=== PATIENT | male | born 1970 | race Caucasian/White ===

== ENCOUNTER 2018-05-03 07:58 | Outpatient (CLI) | payer OTHER, SELFPAY ==
[2018-05-03 11:03] LABS: ALT 57 U/L (12-78); AST 24 U/L (15-37); Albumin 3.9 g/dL (3.4-5.0); Alkaline Phosphatase 79 U/L (46-116); Anion Gap 7.7 mmol/L (3-11); BUN 19 mg/dL (7-18); Bilirubin, Total 0.5 mg/dL (0.2-1.0); CO2 29.3 mmol/L (21.0-32.0); CREATININE 1.08 mg/dL (0.70-1.30); Calcium 8.9 mg/dL (8.5-10.1); Chloride 104 mmol/L (98-107); Cholesterol 220 mg/dL (50-200); Glucose 104 mg/dL (70-100); HDL Cholesterol 34 mg/dL (40-60); LDL CHOLESTEROL 148 mg/dL (<100); Potassium 4.2 mmol/L (3.5-5.1); Sodium 141 mmol/L (136-145); Total Protein 7.2 g/dL (6.4-8.2); Triglyceride 194 mg/dL (30-150)
== END 2018-05-03 08:18 ==
PROVIDERS: PCP Nurse Practitioner Family; Visit Provider Nurse Practitioner Family
DX: Z13.220 Encounter for screening for lipoid disorders (principal); Z13.228 Encounter for screening for other metabolic disorders
CPT/HCPCS: 36415; 80053; 80061; 83721

== ENCOUNTER 2018-11-07 01:23 | Outpatient (CLI) | payer OTHER, SELFPAY ==
[2018-11-07 09:38] LABS: Calculated LDL 140 mg/dL; Cholesterol 201 mg/dL (50-200); HDL Cholesterol 35 mg/dL (40-60); Triglyceride 130 mg/dL (30-150)
== END 2018-11-07 01:43 ==
PROVIDERS: PCP Nurse Practitioner Family; Visit Provider Nurse Practitioner Family
DX: E78.5 Hyperlipidemia, unspecified (principal)
CPT/HCPCS: 36415; 80061; 83721

== ENCOUNTER 2020-05-27 09:15 | Outpatient (REF) | payer OTHER, SELFPAY ==
[2020-05-27 16:23] LABS: Anion Gap 9.6 mmol/L (3-11); BUN 17 mg/dL (7-18); CO2 26.4 mmol/L (21.0-32.0); Calcium 9.1 mg/dL (8.5-10.1); Calculated LDL 140 mg/dL (<100); Chloride 104 mmol/L (98-107); Cholesterol 203 mg/dL (<200); Glucose 98 mg/dL (74-106); HDL Cholesterol 33 mg/dL (40-60); Sodium 140 mmol/L (136-145); Triglyceride 152 mg/dL (<150)
== END 2020-05-27 09:16 | disposition home or self-care (01) ==
LOC: NCHCN 09:15
PROVIDERS: PCP Nurse Practitioner Family; Visit Provider Nurse Practitioner Family
DX: E78.5 Hyperlipidemia, unspecified (principal); Z00.00 Encounter for general adult medical examination without abnormal findings
CPT/HCPCS: 80048; 80061

== ENCOUNTER 2022-11-11 12:32 | Outpatient (REF) | payer OTHER, SELFPAY ==
[2022-11-11 16:27] LABS: BUN 13 mg/dL (7-18); Calcium 9.6 mg/dL (8.5-10.1); Calculated LDL 159 mg/dL (<100); Chloride 100 mmol/L (98-107); Cholesterol 230 mg/dL (<200); Estimated GFR 91.69 (mL/min/1.73m2); Glucose 102 mg/dL (74-106); HDL Cholesterol 50 mg/dL (40-60); Potassium 4.2 mmol/L (3.5-5.1); Sodium 137 mmol/L (136-145); Triglyceride 105 mg/dL (<150)
[2022-11-14 09:18] LABS: PSA, Screening 0.4 ng/mL (<=3.5)
== END 2022-11-11 12:33 | disposition home or self-care (01) ==
LOC: NCHCN 12:32
PROVIDERS: PCP Nurse Practitioner Family; Visit Provider Physician Assistant
DX: E78.5 Hyperlipidemia, unspecified (principal); Z12.5 Encounter for screening for malignant neoplasm of prostate
CPT/HCPCS: 80048; 80061; 84153

== ENCOUNTER 2023-05-25 08:26 | Day surgery (SDC) | payer OTHER, SELFPAY ==
--- NOTE | 2023-05-24 22:14 | PDOC.DSDIS_ITS ---
Date of service: 05/25/23 Time of Service: 11:01 Discharge Plan Disposition Patient Disposition: Home Condition: Good Discharge Details Reason For Visit: Screening colonoscopy Attending Provider: Stefano Minor Primary Care Provider: Khang Mcdonald Home Meds and New Rx's Prescriptions: Continued levalbuterol tartrate [Xopenex HFA] 45 mcg/actuation HFA aerosol inhaler 1 puff inhalation Q6H PRN tadalafil 10 mg tablet 10 mg PO DAILY PRN Rx Instructions: administer approximately 30min before sexual activity; do not use more than 1 dose per 24hrs Discharge Instructions Additional Instructions: Piero, we were able to complete your colonoscopy today without any difficulty. Your prep was excellent and I could see everything just fine. There was no signs of any polyps, tumors, or any other worrisome pathology. With a negative screening colonoscopy, I recommend a 10-year interval for your next follow-up. 1. If tolerated, consume a soft, low fiber diet for 1-2 days. 2. Do not drive, drink alcohol, operate machinery, make critical decisions, or d o activities that require coordination or balance for 24 hours. 3. Because air was put into your colon during the procedure, expelling air from your rectum (passing gas or farting) is normal. 4. You may not have a bowel movement for 1-3 days because of the colonoscopy prep. This is normal. 5. Go directly to the emergency room if you notice any of the following: Develop chills (warm to touch), or if you have a thermometer and your temperature is above 101 Difficulty breathing or difficultly swallowing Persistent vomiting Severe abdominal pain, other than gas cramps Severe chest pain Black, tarry stools Any bleeding ? exceeding one tablespoon 6. Call your physician if the site where your intravenous was started becomes red, swollen, painful, and warm to touch. 7. Your physician has reviewed your pre-procedure medications. Please continue to take those medications as previously ordered. You will be given specific information/education regarding any changes to your medications before leaving. Activity:: Activity as Tolerated Diet:: As Tolerated Discharge Orders Discharge Orders: Discharge Order (Routine); Ordered 05/24/23 Ordered By: Stefano Minor DS: Diagnosis Discharge Diagnosis (1) Encounter for screening colonoscopy: Status: Acute Asessment and Plan: Negative screening colonoscopy, follow-up 10 years
--- NOTE | 2023-05-24 22:15 | W.COLOREPORT ---
Date of service: 05/25/23 Time of Service: 11:02 Colonoscopy Report Date of procedure: 05/25/23 Pre-op diagnosis general: Screening colonoscopy Post-op diagnosis procedure note: other (Negative screening colonoscopy) Procedure: Colonoscopy Surgeon: Stefano Minor Anesthesia Type: General:No Airway Estimated blood loss (mL): 0 Pathology: none sent Complications: None Disposition: same day Indications: Piero is a 52-year-old man who needs his first screening colonoscopy Prep: Miralax/Dulcolax Procedure Start Time: 10:42 Procedure End Time: 10:55 Retraction Time: 7 Findings: Negative screening colonoscopy Procedure Description: After the induction of monitored anesthetic care, and with the patient in left lateral decubitus position, I began by performing an external anorectal exam.? Perineum and skin were normal, as was the anal verge.? There was evidence of external hemorrhoids.? Next, I performed a digital rectal exam.? I did not appreciate any abnormal findings.? Next, I advanced a colonoscope into the rectal vault.? I performed retroflexion.? This was normal.? Using insufflation, I then advanced the colonoscope beyond the rectal folds and into the sigmoid colon before advancing towards the cecum.? The scope was noted to be in the cecum by identification of the ileocecal valve and appendiceal orifice.? I then began withdrawing the colonoscope using repeated irrigation as necessary for full evaluation of the colonic mucosa. ?Once the scope was withdrawn to the level of the rectum, great care was taken to examine portions of the rectal folds.? I did not see any signs of tumors, polyps, or any other worrisome pathology. Finally, the scope was withdrawn and the patient was brought to the same-day surgery recovery unit as the anesthetic wore off. ?The findings and instructions were shared with the patient prior to discharge. [place] Bowel Prep [place] Bowel Prep Right Colon: 3 Left Colon: 3 Transverse Colon: 3 Total Score: 9
[2023-05-25 08:50] VITALS: BP 152/89; PULSE 61; RESP 16; TEMP 36.7; O2SAT 97
[2023-05-25] MEDS: Lactated Ringers 1,000 ML 80 ML IV (08:53)
--- NOTE | 2023-05-25 10:31 | W.ANESPRE ---
General Info Date of Service Date Performed: 05/25/23 Height: 5 ft 7 in Weight: 82.9 kg Body Mass Index (BMI): 28.6 Surgical Procedure: Operation Date: 05/25/23 10:05 Proposed Procedure Side Surgeon p Margarita Minor MD Meds Allergies and Home Medications Allergies Allergy/AdvReac Type Severity Reaction Status Date / Time No Known Drug Allergies Allergy Unknown Other (See Verified 05/25/23 08:48 Comment) Home Medication Medication Instructions Recorded tadalafil 10 mg tablet 10 mg PO DAILY PRN 02/20/23 levalbuterol tartrate 45 1 puff inhalation Q6H PRN 05/10/23 mcg/actuation aerosol inhaler (Xopenex HFA) Current Visit Medications: Current Medications Generic Name Dose Route Start Last Admin Trade Name Freq PRN Reason Stop Dose Admin Hyoscyamine Sulfate 0.125 mg 05/24/23 22:16 Hyoscyamine 0.125 Mg Sl/Oral/Chew SL 06/23/23 22:15 DIRECTED PRN Ringer's Solution 1,000 mls @ 80 mls/hr 05/25/23 06:00 05/25/23 08:53 IV 05/25/23 23:59 80 mls/hr INFUSION AMY Administration IV Miscellaneous Supplies 1 each 05/25/23 06:00 Iv Access IV 05/25/23 23:59 DIRECTED AMY Ondansetron HCl 4 mg 05/24/23 22:16 Ondansetron 4 Mg/2 Ml Vial IVP 06/23/23 22:15 Q4H PRN PRN Nausea / Vomiting Sodium Chloride 0 ml 05/25/23 06:00 Normal Saline Flush 10 Ml Syr IV 05/25/23 23:59 PRN PRN Sodium Chloride 0 ml 05/25/23 06:00 Normal Saline 10 Ml Vial IJ 05/25/23 23:59 DIRECTED PRN Sterile Water 0 ml 05/25/23 06:00 Water,Injection,Sterile 10 Ml Vial IJ 05/25/23 23:59 DIRECTED PRN PFSH Active Problems Active Problems: Problem Status Onset Code Encounter for screening colonoscopy Z12.11 Medical History Medical History Erectile dysfunction Asthma, mild intermittent Hyperlipidemia Neck pain on left side Right calf pain Family history of malignant melanoma Tobacco Smoking/Tobacco Use Status: Never Alcohol Alcohol Intake: current Alcohol intake frequency: a few times a month Substance Use Substance use type: does not use Vital Signs and Lab Results Vital Signs Most Recent Vital Signs in EMR: Most Recent Vital Signs Temp Pulse Resp BP Pulse Ox 36.7 C 61 16 152/89 H 97 05/25/23 08:50 05/25/23 08:50 05/25/23 08:50 05/25/23 08:50 05/25/23 08:50 Lab Results Blood Type / Crossmatch: No Data to Display Complete Blood Count: No Data to Display Complete Metabolic Panel: No Data to Display Liver Function Panel: No Data to Display Coagulation Panel: No Data to Display Cardiac Panel: No Data to Display Arterial Blood Gas: No Data to Display Venous Blood Gas: No Data to Display Pancreas Panel: No Data to Display Thyroid Panel: No Data to Display Infectious Disease: No Data to Display Blood Cultures: No Data to Display Toxicology Panel: No Data to Display Anesthesia Assessment and Plan Anesthesia History Personal History: No History of Anesthesia Complications Family History: No Family History of Anesthesia Complications Exercise Tolerance Exercise Tolerance: Metabolic Equivalents>4 Pertinent Negatives Pertinent Negatives: No Symptoms of GERD Cardiac & Pulmonary Exam Cardiac Exam: Normal S1/S2 Heart Sounds Pulmonary Exam: Clear Bilateral Breath Sounds Implantable Cardiac Device Does patient have a Pacemaker or an ICD?: No Airway Exam Known Difficult Airway: No Mallampati Class: 2 Mouth Opening: Normal (> 3cm) Thyromental Distance: Greater than 3 cm Neck Range of Motion: Full ROM Neck Circumference: Normal Teeth Condition: Normal Dentition ASA Classification ASA Score: ASA 2 Emergency Case?: No NPO Status NPO Status: NPO Clears >2 hours, Solids >8 hours Anesthesia Plan Resuscitation Status: Full Code Anesthesia Technique: General Anesthesia Airway Planned: Natural Airway Monitors Used: Standard Monitors
[2023-05-25 10:32] VITALS: BMI 28.6
[2023-05-25 11:02] VITALS: BP 130/85; PULSE 76; RESP 18; TEMP 36.6; O2SAT 96
--- NOTE | 2023-05-25 11:07 | W.ANESPOSTOP ---
Postoperative Evaluation Date, Time and Location Date Performed: 05/25/23 Time Performed: 11:07 Patient Location: Day Surgery Unit Vital Signs Most Recent Imported Vital Signs: Most Recent Vital Signs Temp Pulse Resp BP Pulse Ox 36.7 C 61 16 152/89 H 97 05/25/23 08:50 05/25/23 08:50 05/25/23 08:50 05/25/23 08:50 05/25/23 08:50 Pain Score Most Recent Pain Score: Most Recent Pain Score Pain Level 0 05/25/23 08:50 Assessment Mental Status: Awake (Alert & Oriented to Patient Baseline) Airway and Respiratory Function: Patent airway with normal (patient baseline) respiratory exam Cardiovascular Function: Hemodynamically Stable Hydration Status: Adequately Hydrated Nausea & Vomiting: No Nausea or Vomiting Pain: Pt. Denies Any Pain Peripheral Nerve Block: Patient did not receive a nerve block
[2023-05-25 11:32] VITALS: BP 130/85; PULSE 58; RESP 16; TEMP 36.9; O2SAT 96
== END 2023-05-25 11:50 | disposition home or self-care (01) ==
LOC: SUR 08:26
PROVIDERS: PCP Physician Assistant; Visit Provider Surgery
PROC: 0DJD8ZZ Inspection of Lower Intestinal Tract, Via Natural or Artificial Opening Endoscopic (ICD-10-PCS; CPT 45378; principal; 2023-05-25 10:00)
DX: Z12.11 Encounter for screening for malignant neoplasm of colon (principal); J45.20 Mild intermittent asthma, uncomplicated; E78.5 Hyperlipidemia, unspecified; Z80.8 Family history of malignant neoplasm of other organs or systems
CPT/HCPCS: 45378; J2001; J2704

== ENCOUNTER 2024-01-22 02:15 | Outpatient (CLI) | payer OTHER, SELFPAY ==
[2024-01-22 10:34] LABS: Hemoglobin A1C 5.6 % (<5.7)
[2024-01-22 11:08] LABS: ALT 40 U/L (16-63); AST 26 U/L (15-37); Albumin 4.1 g/dL (3.4-5.0); Alkaline Phosphatase 91 U/L (46-116); Anion Gap 5.7 mmol/L (3-11); BUN 21 mg/dL (7-18); Bilirubin, Total 0.49 mg/dL (0.2-1.0); CO2 31.3 mmol/L (21.0-32.0); Calcium 9.1 mg/dL (8.5-10.1); Calculated LDL 143 mg/dL (<100); Chloride 105 mmol/L (98-107); Cholesterol 214 mg/dL (<200); Estimated GFR 91.12 (mL/min/1.73m2); Glucose 93 mg/dL (74-106); HDL Cholesterol 52 mg/dL (40-60); Potassium 3.9 mmol/L (3.5-5.1); Sodium 142 mmol/L (136-145); Total Protein 7.4 g/dL (6.4-8.2); Triglyceride 99 mg/dL (<150)
[2024-01-22 18:26] LABS: PSA, Screening 0.5 ng/mL (<=3.5)
== END 2024-01-22 02:16 | disposition home or self-care (01) ==
LOC: LBO 02:15
PROVIDERS: PCP Physician Assistant; Visit Provider Physician Assistant
DX: E78.5 Hyperlipidemia, unspecified (principal); Z12.5 Encounter for screening for malignant neoplasm of prostate; Z13.1 Encounter for screening for diabetes mellitus
CPT/HCPCS: 36415; 80053; 80061; 84153; 83036

== ENCOUNTER 2024-04-12 13:13 | Outpatient (CLI) | payer OTHER, SELFPAY ==
--- NOTE | 2024-04-12 13:20 | DI.RAD_ITS ---
Exam(s) XR ANKLE LT COMPLETE EXAM: XR ANKLE LT COMPLETE CLINICAL HISTORY: TENDINITIS LT ACHILLES,M76.62 TECHNIQUE: 2D digital imaging was performed of the left ankle. Three images were obtained. AP, lat eral and oblique views were obtained. COMPARISON: No exams were available for comparison FINDINGS: BONES: No acute fracture is present. No bony destructive lesion is seen. JOINTS:The ankle mortise is normally aligned. SOFT TISSUE: Normal. IMPRESSION: Unremarkable radiographs of the left ankle. If there is concern for internal derangement, an MRI shou ld be considered for further evaluation. DATA REPOSITORY: RADIATION DOSE DELIVERED:
== END 2024-04-12 13:33 ==
LOC: DI 13:13
PROVIDERS: PCP Physician Assistant; Visit Provider Physician Assistant
DX: M76.62 Achilles tendinitis, left leg (principal)
CPT/HCPCS: 73610

== ENCOUNTER 2024-05-21 01:31 | Outpatient (CLI) | payer OTHER, SELFPAY ==
--- NOTE | 2024-05-21 06:00 | DI.MRI_ITS ---
Exam(s) MR LOWER JOINT LT WO EXAM: MR LOWER JOINT LT WO CLINICAL HISTORY: L ANKLE PAIN,impingement lt ankle joint,arthritis lt ankle,m19.072,m25.872 TECHNIQUE: Multiplanar multisequence MRI was performed without intravenous contrast. COMPARISON: CR XR ANKLE LT COMPLETE from 04/12/2024 FINDINGS: BONES/JOINTS: There is marrow edema seen in the body of the calcaneus without evidence of a fracture. There is also mild marrow edema seen in the medial malleolus. There is no evidence of a fracture. There is mild marrow edema seen in the medial aspect of the talar dome. No cortical disruption or l oose body is seen. The talar dome is smooth. There may be mild narrowing of the joint space particul carlos medially. No significant joint effusion is seen. Note is made of an os trigonum. There does a ppear to be mild hyperintense signal seen in the edges of the os trigonum. There is normal signal si gnal seen in the adjacent talus. There is fluid seen in the soft tissues posteriorly adjacent to the posterior talus and the os trigonum. LIGAMENTS: The tibiofibular and calcaneofibular ligaments are intact. The talofibular ligaments are i ntact. The deltoid ligament is intact. The syndesmosis is unremarkable. There is mild hyperintense s ignal seen within the sinus tarsi. MUSCULOTENDINOUS STRUCTURES: Achilles tendon: There is thickening and intermediate signal seen within the distal Achilles tendon. This is suspicious for Achilles tendinitis. There is a small amount of fluid seen anterior and post erior to the Achilles tendon and Yogesh's deformity should be considered. Plantar fascia: Unremarkable. Anterior Extensor tendons: Unremarkable. Posterior Tibialis: Unremarkable. Flexor Digitorum longus: Unremarkable. Flexor Hallucis longus: Unremarkable. Peroneus longus: Unremarkable. Peroneus brevis:Unremarkable. SOFT TISSUES: Unremarkable. OTHER FINDINGS: None. IMPRESSION: 1. Fluid seen posterior to the talus and adjacent to the os trigonum. Differential considerations in clude posterior impingement versus os trigonum syndrome. There is minimal increased signal seen with in the os trigonum. 2. Thickening of the distal Achilles tendon with abnormal intermediate signal seen internally suspici ous for Achilles tendinitis. There is a small amount of fluid seen surrounding the tendon suspicious for Yogesh's deformity. 3. Reactive marrow edema seen in the calcaneus, talar dome and the medial malleolus. Question of mil d narrowing of the medial aspect of the ankle joint. DATA REPOSITORY:
== END 2024-05-21 01:51 ==
LOC: DI 01:31
PROVIDERS: PCP Physician Assistant; Visit Provider Student in an Organized Health Care Education/Training Program
DX: M25.872 Other specified joint disorders, left ankle and foot (principal); M19.072 Primary osteoarthritis, left ankle and foot
CPT/HCPCS: 73721